=== PATIENT | male | born 1940 | race Caucasian/White ===

== ENCOUNTER 2016-08-07 06:06 | Inpatient (IN) | payer MEDICARE ==
[~2016-08-07] VITALS: Ht 165.1 cm; Wt 55.2 kg
[~2016-08-07 06:06] MED LIST: ALBU8HFA IH; AMIO200T44 PO; ASPI-1093 PO; AUD NEB; CARV6 PO; FURO20 PO; IPRNEB NEB; ISOS30TA6 PO; LEVO500 IVPB; LISI-661 PO; MEMA5 PO; PRED20 PO; QUET50XR PO; RISP.5 PO
[2016-08-07] MEDS ORDERED: ALBUTEROL SULFATE 5 MG/ML 20 ML NEB SOLN [BULK] NEB ONE (06:15)
[2016-08-07] MEDS ORDERED: IPRATROPIUM BROMIDE 0.5 MG/2.5 ML NEB SOLUTION NEB ONE (06:15)
[2016-08-07] MEDS ORDERED: MethylPREDNISolone SOD SUCC 125 MG/2 ML VIAL IVP ONE (06:15)
[2016-08-07] MEDS ORDERED: FOLI1 PO (06:17)
[2016-08-07] MEDS ORDERED: CARV12 PO (06:17)
[2016-08-07] MEDS ORDERED: SPIR25 PO (06:17)
[2016-08-07] MEDS ORDERED: HYDR-309 PO (06:17)
[2016-08-07] MEDS ORDERED: FURO40 PO (06:17)
[2016-08-07] MEDS ORDERED: LISI-660 PO (06:17)
[2016-08-07 06:44] LABS: BASOPHILS % (AUTO) 0.1 % (0.0-2.0); EOSINOPHILS % (AUTO) 0.1 % (1.0-6.0); HEMATOCRIT 39.6 % (41-53); HEMOGLOBIN 12.6 g/dL (13.5-17.5); LYMPHOCYTES # (AUTO) 1.6 K/uL (1.0-4.8); LYMPHOCYTES % (AUTO) 6.1 % (22.0-44.0); MEAN CORPUSCULAR HEMOGLOBIN 30.8 pg (26.0-34.0); MEAN CORPUSCULAR HGB CONC 31.9 G/dL (31.0-37.0); MEAN CORPUSCULAR VOLUME 97 fL (80-100); MONOCYTES # (AUTO) 1.8 K/uL (0.1-1.0); MONOCYTES % (AUTO) 6.8 % (2.0-9.0); NEUTROPHILS # (AUTO) 22.4 K/uL (1.8-7.7); PLATELET COUNT (AUTO) 352 K/uL (150-450); RED BLOOD CELL COUNT(AUTO) 4.09 MIL/uL (4.50-5.90); RED CELL DISTRIBUTION WIDTH 17.5 % (11.5-14.5); WHITE BLOOD COUNT (AUTO) 25.8 K/uL (4.5-11.0)
[2016-08-07 06:46] LABS: NEUTROPHILS % (AUTO) 86.9 % (40.0-70.0)
[2016-08-07 06:50] LABS: APPEARANCE,URINE CLEAR (CLEAR); GLUCOSE, URINE (UA) NEGATIVE (NEGATIVE); KETONES,URINE NEGATIVE (NEGATIVE); LEUKOCYTE ESTERASE ,URINE NEGATIVE (NEGATIVE); OCCULT BLOOD,URINE TRACE (NEGATIVE); PROTEIN,URINE TRACE (NEGATIVE)
[2016-08-07 06:52] LABS: ADD UA MICROSCOPIC YES
[2016-08-07 06:55] LABS: ANION GAP 12 mmol/L (8-16); CALCIUM, TOTAL 9.2 mg/dL (8.8-10.5); CARBON DIOXIDE 26 mmol/L (22-29); CHLORIDE 104 mmol/L (98-107); CREATININE 0.93 mg/dL (0.60-1.30); GLOMERULAR FILTR. RATE CALC > 60 mL/min (>60); POTASSIUM 4.3 mmol/L (3.5-5.1); SODIUM SERUM 142 mmol/L (136-145); UREA NITROGEN, BLOOD 28 mg/dL (7-18)
[2016-08-07] MEDS ORDERED: 0.9% SODIUM CHLORIDE 5 ML NEB SOLUTION NEB ONE (07:02)
[2016-08-07 07:07] LABS: FINE GRANULAR CASTS,URINE 0-2 /LPF (None Seen); HYALINE CASTS, URINE 0-2 /LPF (None Seen); RBC,URINE 0-2 /HPF (0-2); SQUAMOUS EPITHELIAL CELL,UR Few /LPF (None Seen); WBC,URINE 0-2 /HPF (0-5)
[2016-08-07 07:08] LABS: RBC MORPHOLOGY COMMENT ABNORMAL RBC MORPH
[2016-08-07 07:13] LABS: B-TYPE NATRIURETIC PEPTIDE 1330 pg/mL (0-100)
[2016-08-07 07:20] LABS: ALANINE AMINOTRANSFERASE 74 U/L (12-78); ASPARTATE AMINOTRANSFERASE 67 U/L (15-37); BILIRUBIN,TOTAL 0.3 mg/dL (0.1-1.0); CREATINE KINASE MB 6.2 ng/mL (0-5); CREATINE KINASE, TOTAL 619 U/L (39-308); TOTAL PROTEIN, SERUM 7.9 g/dL (6.4-8.2)
[2016-08-07] MEDS ORDERED: FUROSEMIDE 40 MG/4 ML VIAL IVP ONE (08:00)
[2016-08-07] MEDS ORDERED: NITROGLYCERIN 2% (1 GM=INCH) PACKET TP ONE (08:00)
[2016-08-07] MEDS ORDERED: LEVOFLOXACIN 750 MG/D5% WATER 150 ML IV ONE (08:00)
[2016-08-07] MEDS ORDERED: 0.9% SODIUM CHLORIDE 10 ML SYRINGE IVP PRN (09:30)
[2016-08-07] MEDS ORDERED: ACETAMINOPHEN 325 MG TABLET PO PRN ×2 (09:30→12:00)
[2016-08-07] MEDS ORDERED: ALBUTEROL SULFATE 2.5 MG/0.5 ML NEB SOLUTION NEB SCH (11:00)
[2016-08-07] MEDS ORDERED: IPRATROPIUM BROMIDE 0.5 MG/2.5 ML NEB SOLUTION NEB SCH (11:00)
[2016-08-07] MEDS ORDERED: MAGNESIUM HYDROXIDE SUSPENSION 30 ML UDCUP PO PRN (12:00)
[2016-08-07] MEDS: MethylPREDNISolone SOD SUCC 125 MG/2 ML VIAL IVP SCH ×3 (12:27→23:41)
[2016-08-07] MEDS: MULTIVITAMINS WITH MINERALS, THERAPEUTIC TABLET PO SCH (12:27)
[2016-08-07] MEDS: ALBUTEROL SULFATE 2.5 MG/0.5 ML NEB SOLUTION NEB SCH ×3 (15:11→23:03)
[2016-08-07] MEDS: IPRATROPIUM BROMIDE 0.5 MG/2.5 ML NEB SOLUTION NEB SCH ×3 (15:12→23:03)
[2016-08-07] MEDS: HEPARIN SODIUM,PORCINE 5,000 UNITS/ML VIAL SQ SCH ×2 (15:24→23:42)
[2016-08-07] MEDS: OxyCODONE HCL/ACETAMINOPHEN 5-325 MG TABLET PO PRN ×2 (15:24→20:24)
[2016-08-07 15:48] VITALS: BP 92/51
[2016-08-07 19:24] VITALS: BP 105/54
[2016-08-07] MEDS: DOCUSATE SODIUM 100 MG CAPSULE PO SCH (20:24)
[2016-08-07 23:42] VITALS: BP 112/60
[2016-08-08] MEDS: ALBUTEROL SULFATE 2.5 MG/0.5 ML NEB SOLUTION NEB SCH ×6 (02:52→23:42)
[2016-08-08] MEDS: IPRATROPIUM BROMIDE 0.5 MG/2.5 ML NEB SOLUTION NEB SCH ×6 (02:52→23:42)
[2016-08-08 04:14] VITALS: BP 121/55
[2016-08-08] MEDS: MethylPREDNISolone SOD SUCC 125 MG/2 ML VIAL IVP SCH ×4 (06:22→21:27)
[2016-08-08 06:32] LABS: HEMATOCRIT 31.7 % (41-53); HEMOGLOBIN 10.2 g/dL (13.5-17.5); MEAN CORPUSCULAR HGB CONC 32.2 G/dL (31.0-37.0); MEAN CORPUSCULAR VOLUME 96 fL (80-100); PLATELET COUNT (AUTO) 304 K/uL (150-450); RED BLOOD CELL COUNT(AUTO) 3.29 MIL/uL (4.50-5.90); RED CELL DISTRIBUTION WIDTH 17.8 % (11.5-14.5); WHITE BLOOD COUNT (AUTO) 23.6 K/uL (4.5-11.0)
[2016-08-08 07:00] LABS: ALBUMIN 2.5 g/dL (3.4-5.0); BILIRUBIN,TOTAL 0.3 mg/dL (0.1-1.0); CALCIUM, TOTAL 8.5 mg/dL (8.8-10.5); CREATININE 1.23 mg/dL (0.60-1.30); TOTAL PROTEIN, SERUM 6.5 g/dL (6.4-8.2)
[2016-08-08 07:36] VITALS: BP 121/61
[2016-08-08] MEDS ORDERED: SODIUM CHLORIDE 0.9% 500 ML IV ONE (08:03)
[2016-08-08] MEDS: MULTIVITAMINS WITH MINERALS, THERAPEUTIC TABLET PO SCH (08:08)
[2016-08-08] MEDS: PANTOPRAZOLE SODIUM 40 MG DR TABLET PO SCH (08:08)
[2016-08-08] MEDS: HEPARIN SODIUM,PORCINE 5,000 UNITS/ML VIAL SQ SCH ×2 (08:08→16:14)
[2016-08-08] MEDS: ASPIRIN 81 MG CHEWABLE TABLET PO SCH (08:08)
[2016-08-08] MEDS: DOCUSATE SODIUM 100 MG CAPSULE PO SCH ×2 (08:09→21:27)
[2016-08-08 08:49] LABS: BAND NEUTROPHILS % (MANUAL) 13 % (1-5); LYMPHOCYTES % (MANUAL) 2 % (22-44); RBC MORPHOLOGY COMMENT ABNORMAL RBC MORPH; TOTAL CELLS COUNTED 100
[2016-08-08] MEDS ORDERED: SPIRONOLACTONE 50 MG TABLET PO SCH (09:00)
[2016-08-08] MEDS: FUROSEMIDE 40 MG/4 ML VIAL IVP SCH (09:03)
[2016-08-08] MEDS: LEVOFLOXACIN 500 MG/D5% WATER 100 ML IV SCH (09:04)
[2016-08-08 11:16] VITALS: BP 113/63
[2016-08-08] MEDS: SPIRONOLACTONE 25 MG TABLET PO SCH (11:41)
[2016-08-08] MEDS: CARVEDILOL 3.125 MG TABLET PO SCH ×2 (11:41→22:07)
[2016-08-08] MEDS ORDERED: 0.9% SODIUM CHLORIDE 10 ML SYRINGE IVP PRN (14:15)
[2016-08-08 15:39] VITALS: BP 125/82
[2016-08-08] MEDS ORDERED: MethylPREDNISolone SOD SUCC 125 MG/2 ML VIAL IVP SCH (16:00)
[2016-08-08] MEDS: OxyCODONE HCL/ACETAMINOPHEN 5-325 MG TABLET PO PRN (16:14)
[2016-08-08] MEDS: SACUBITRIL/VALSARTAN 24-26 MG TABLET PO SCH ×2 (16:14→21:27)
[2016-08-08 19:55] VITALS: BP 135/69
[2016-08-09] VITALS (7 sets, daily range): BP systolic 111–139; BP diastolic 60–74
[2016-08-09] MEDS: HEPARIN SODIUM,PORCINE 5,000 UNITS/ML VIAL SQ SCH ×4 (00:08→23:51)
[2016-08-09] MEDS: ALBUTEROL SULFATE 2.5 MG/0.5 ML NEB SOLUTION NEB SCH ×6 (04:10→23:10)
[2016-08-09] MEDS: IPRATROPIUM BROMIDE 0.5 MG/2.5 ML NEB SOLUTION NEB SCH ×6 (04:10→23:10)
[2016-08-09 07:23] LABS: EOSINOPHILS % (AUTO) 0 % (1.0-6.0); HEMATOCRIT 32.4 % (41-53); HEMOGLOBIN 10.5 g/dL (13.5-17.5); LYMPHOCYTES # (AUTO) 0.8 K/uL (1.0-4.8); LYMPHOCYTES % (AUTO) 3.6 % (22.0-44.0); MEAN CORPUSCULAR HEMOGLOBIN 30.9 pg (26.0-34.0); MEAN CORPUSCULAR HGB CONC 32.3 G/dL (31.0-37.0); MEAN CORPUSCULAR VOLUME 96 fL (80-100); MONOCYTES # (AUTO) 1.2 K/uL (0.1-1.0); MONOCYTES % (AUTO) 5.7 % (2.0-9.0); NEUTROPHILS # (AUTO) 19.7 K/uL (1.8-7.7); PLATELET COUNT (AUTO) 316 K/uL (150-450); RED BLOOD CELL COUNT(AUTO) 3.39 MIL/uL (4.50-5.90); RED CELL DISTRIBUTION WIDTH 17.8 % (11.5-14.5); WHITE BLOOD COUNT (AUTO) 21.8 K/uL (4.5-11.0)
[2016-08-09 07:35] LABS: NEUTROPHILS % (AUTO) 90.7 % (40.0-70.0)
[2016-08-09] MEDS: MethylPREDNISolone SOD SUCC 125 MG/2 ML VIAL IVP SCH ×2 (08:00)
[2016-08-09] MEDS: LEVOFLOXACIN 500 MG/D5% WATER 100 ML IV SCH (08:00)
[2016-08-09 08:06] LABS: ALANINE AMINOTRANSFERASE 64 U/L (12-78); ALBUMIN 2.5 g/dL (3.4-5.0); ANION GAP 7 mmol/L (8-16); ASPARTATE AMINOTRANSFERASE 61 U/L (15-37); BILIRUBIN,TOTAL 0.3 mg/dL (0.1-1.0); CALCIUM, TOTAL 8.5 mg/dL (8.8-10.5); CARBON DIOXIDE 30 mmol/L (22-29); CHLORIDE 102 mmol/L (98-107); CREATININE 0.96 mg/dL (0.60-1.30); GLOMERULAR FILTR. RATE CALC > 60 mL/min (>60); SODIUM SERUM 139 mmol/L (136-145); TOTAL PROTEIN, SERUM 6.4 g/dL (6.4-8.2); UREA NITROGEN, BLOOD 33 mg/dL (7-18)
[2016-08-09] MEDS: SPIRONOLACTONE 25 MG TABLET PO SCH (08:18)
[2016-08-09] MEDS: DOCUSATE SODIUM 100 MG CAPSULE PO SCH ×2 (08:18→21:09)
[2016-08-09] MEDS: PANTOPRAZOLE SODIUM 40 MG DR TABLET PO SCH (08:18)
[2016-08-09] MEDS: SACUBITRIL/VALSARTAN 24-26 MG TABLET PO SCH ×2 (08:18→21:09)
[2016-08-09] MEDS: MULTIVITAMINS WITH MINERALS, THERAPEUTIC TABLET PO SCH (08:18)
[2016-08-09] MEDS: OxyCODONE HCL/ACETAMINOPHEN 5-325 MG TABLET PO PRN (08:18)
[2016-08-09] MEDS: ASPIRIN 81 MG CHEWABLE TABLET PO SCH (08:18)
[2016-08-09 08:38] LABS: RBC MORPHOLOGY COMMENT ABNORMAL RBC MORPH
[2016-08-09] MEDS: PredniSONE 20 MG TABLET PO SCH (08:40)
[2016-08-09] MEDS: FUROSEMIDE 40 MG/4 ML VIAL IVP SCH (08:44)
[2016-08-09] MEDS: CARVEDILOL 3.125 MG TABLET PO SCH ×2 (09:11→21:09)
[2016-08-09] MEDS: LEVOFLOXACIN 500 MG TABLET PO SCH (12:07)
[2016-08-09] MEDS: FUROSEMIDE 20 MG TABLET PO SCH (12:07)
[2016-08-10 00:15] VITALS: BP 138/75
[2016-08-10] MEDS: IPRATROPIUM BROMIDE 0.5 MG/2.5 ML NEB SOLUTION NEB SCH ×4 (03:39→16:09)
[2016-08-10] MEDS: ALBUTEROL SULFATE 2.5 MG/0.5 ML NEB SOLUTION NEB SCH ×4 (03:39→16:09)
[2016-08-10 04:02] VITALS: BP 139/75
[2016-08-10 07:46] VITALS: BP 127/71
[2016-08-10] MEDS: HEPARIN SODIUM,PORCINE 5,000 UNITS/ML VIAL SQ SCH ×2 (08:02→16:32)
[2016-08-10] MEDS: PANTOPRAZOLE SODIUM 40 MG DR TABLET PO SCH (08:03)
[2016-08-10] MEDS: LEVOFLOXACIN 500 MG TABLET PO SCH (08:03)
[2016-08-10] MEDS: PredniSONE 20 MG TABLET PO SCH (08:03)
[2016-08-10] MEDS: DOCUSATE SODIUM 100 MG CAPSULE PO SCH (08:04)
[2016-08-10] MEDS: ASPIRIN 81 MG CHEWABLE TABLET PO SCH (08:04)
[2016-08-10] MEDS: CARVEDILOL 3.125 MG TABLET PO SCH (08:04)
[2016-08-10] MEDS: FUROSEMIDE 20 MG TABLET PO SCH (08:04)
[2016-08-10] MEDS: SPIRONOLACTONE 25 MG TABLET PO SCH (08:04)
[2016-08-10] MEDS: MULTIVITAMINS WITH MINERALS, THERAPEUTIC TABLET PO SCH (08:04)
[2016-08-10] MEDS: SACUBITRIL/VALSARTAN 24-26 MG TABLET PO SCH (08:05)
[2016-08-10] MEDS ORDERED: FUROSEMIDE 20 MG/2 ML VIAL IVP SCH (09:45)
[2016-08-10] MEDS ORDERED: FUROSEMIDE 40 MG TABLET PO SCH (10:30)
[2016-08-10 11:51] VITALS: BP 134/71
[2016-08-10 15:58] VITALS: BP 138/70
[2016-08-10] MEDS ORDERED: ASPI81TA2 PO (16:50)
[2016-08-10] MEDS ORDERED: CARV3 PO (16:50)
[2016-08-10] MEDS ORDERED: FURO40 PO (16:51)
[2016-08-10] MEDS ORDERED: SPIR25 PO (16:51)
[2016-08-10] MEDS ORDERED: LEVO500 PO (16:51)
== END 2016-08-10 17:50 | disposition home or self-care (01) | DRG 291 ==
LOC: EMS 06:07 → 5S 12:25 → 4E 08-09 13:04
PROVIDERS: ADMIT Internal Medicine; ATTEND Internal Medicine
DX: I11.0 Hypertensive heart disease with heart failure (principal); J18.9 Pneumonia, unspecified organism; E43 Unspecified severe protein-calorie malnutrition; J44.1 Chronic obstructive pulmonary disease with (acute) exacerbation; J44.0 Chronic obstructive pulmonary disease with (acute) lower respiratory infection; I50.21 Acute systolic (congestive) heart failure; J84.10 Pulmonary fibrosis, unspecified; I25.5 Ischemic cardiomyopathy; F19.10 Other psychoactive substance abuse, uncomplicated; F10.20 Alcohol dependence, uncomplicated; I25.10 Atherosclerotic heart disease of native coronary artery without angina pectoris; F17.210 Nicotine dependence, cigarettes, uncomplicated; I27.2 Other secondary pulmonary hypertension; I48.0 Paroxysmal atrial fibrillation; Z59.0 Homelessness; Z95.810 Presence of automatic (implantable) cardiac defibrillator; Z91.19 Patient's noncompliance with other medical treatment and regimen; Z79.51 Long term (current) use of inhaled steroids; Z79.899 Other long term (current) drug therapy; Z71.6 Tobacco abuse counseling; Z71.41 Alcohol abuse counseling and surveillance of alcoholic; Z68.20 Body mass index [BMI] 20.0-20.9, adult
CPT/HCPCS: 83735; 87040; 87081; 93005; 93306; 94640; 94644; 96365; 96375; 99291; 99406; J1644; J1940; J1956; J2930; J7040